=== PATIENT | female | born 1980 ===

== ENCOUNTER 2017-04-02 09:18 | Emergency (ER) | payer SELFPAY ==
[2017-04-02 09:19] VITALS: BMI 25.7
[2017-04-02 09:24] VITALS: RESP 18; O2SAT 100
[2017-04-02] MEDS ORDERED: Sodium Chloride 0.9% 1,000 ML IV STA (10:23)
--- NOTE | 2017-04-02 10:24 | ED PDOC ---
HPI: Female Pain Time Seen by Provider: 04/02/17 09:52 Chief Complaint (Nursing): Female Genitourinary Chief Complaint (Provider): UTI History Per: Patient Additional Complaint(s): 36 yo female, no PMH, presents to ED with complaints of 3 days of worsening burning on urination, abdominal cramping, nausea, vomiting and chills - pain radiates to right flank. Past Medical History Reviewed: Nursing Documentation, Vital Signs Vital Signs: Last Vital Signs Temp 98.6 F 04/02/17 09:24 Pulse 82 04/02/17 09:24 Resp 18 04/02/17 09:24 BP 131/73 04/02/17 09:24 Pulse Ox 100 04/02/17 09:24 - Medical History PMH: No Chronic Diseases Denies: Chronic Kidney Disease - Surgical History Surgical History: Appendectomy, Cholecystectomy - Family History Family History: States: Unknown Family Hx, Diabetes, Hypertension - Living Arrangements Living Arrangements: With Family - Home Medications Home Medications: Ambulatory Orders Medication Instructions Recorded Cholecalciferol (Vitamin D3) 1 tab PO DAILY 02/22/16 [D-2000 90 mg-2000 Iu] Vit#96/Ferrous Fum/FA 1 tab PO DAILY 02/22/16 [] Vitamin E [Vitamin E 400 Units Cap] 400 iu PO DAILY 02/22/16 Nitrofurantoin Macrocrystals 100 mg PO BID #6 cap 04/18/16 [Macrobid] Phenazopyridine HCl [Pyridium] 100 mg PO TID #9 tab 04/18/16 Naproxen [Naprosyn] 1 tab PO BID PRN #60 tab 09/17/16 Nitrofurantoin Macrocrystals 1 cap PO BID #14 cap 09/17/16 [Macrobid] Cyclobenzaprine [Cyclobenzaprine 10 mg PO Q8 #15 tab 11/02/16 HCl] Naproxen [Naprosyn] 500 mg PO BID #20 tablet 11/02/16 Cephalexin [cephalexin] 500 mg PO BID #20 cap 04/02/17 - Allergies Allergies/Adverse Reactions: Allergies Allergy/AdvReac Type Severity Reaction Status Date / Time No Known Allergies Allergy Verified 04/18/16 08:21 Review of Systems ROS Statement: Except As Marked, All Systems Reviewed And Found Negative Constitutional: Positive for: Chills Gastrointestinal: Positive for: Nausea, Vomiting, Abdominal Pain Genitourinary Female: Positive for: Dysuria Physical Exam - Reviewed Nursing Documentation Reviewed: Yes Vital Signs Reviewed: Yes - Physical Exam Appears: Positive for: Well, Non-toxic, No Acute Distress Head Exam: Positive for: ATRAUMATIC, NORMAL INSPECTION, NORMOCEPHALIC Skin: Positive for: Normal Color, Warm, DRY Eye Exam: Positive for: EOMI, Normal appearance, PERRL ENT: Positive for: Normal ENT Inspection Neck: Positive for: Normal, Painless ROM Cardiovascular/Chest: Positive for: Regular Rate, Rhythm Respiratory: Positive for: CNT, Normal Breath Sounds Gastrointestinal/Abdominal: Positive for: Normal Exam, Bowel Sounds, Soft Back: Positive for: Normal Inspection Extremity: Positive for: Normal ROM Neurologic/Psych: Positive for: Alert, Oriented - Laboratory Results Result Diagrams: 04/02/17 10:30 04/02/17 10:30 - ECG O2 Sat by Pulse Oximetry: 100 Medical Decision Making Medical Decision Making: IV access established and treatment initiated with IVF, Toradol and Rocephin IV after dip was (+) for nites and leuks. Labs resulted and reviewed with pt who reports feeling greatly improved on re- eval. Pt remains afebrile. WBC 10.2 Stable for discharge with outpt treatment at this time. Disposition - Clinical Impression Clinical Impression: Pyelonephritis - Patient ED Disposition Is Patient to be Admitted: No - Disposition Disposition: Routine/Home Disposition Time: 11:53 Condition: STABLE Prescriptions: Cephalexin [cephalexin] 500 mg PO BID #20 cap Instructions: Acute Pyelonephritis (ED) Print Language: LITHUANIAN
[2017-04-02] MEDS ORDERED: cefTRIAXone (Rocephin) 1 gm Inj ONE (10:27)
[2017-04-02 11:11] LABS: BASO % 0.3 % (0.0-2.0); EOS # 0.1 K/uL (0.0-0.7); EOS % 0.7 % (0.0-4.0); HEMOGLOBIN 13.5 g/dL (12.0-16.0); LYMPH # 2.1 K/uL (1.0-4.3); LYMPH % 21.1 % (20.0-40.0); MEAN CELL VOLUME 81.2 fl (81.0-99.0); MEAN CORPUSCULAR HEMOGLOBIN 27.1 pg (27.0-31.0); MEAN CORPUSCULAR HGB CONC 33.4 g/dL (33.0-37.0); MEAN PLATELET VOLUME 10.1 fl (7.2-11.7); MONO # 0.5 K/uL (0.0-0.8); MONO % 5.3 % (0.0-10.0); NEUT # 7.4 K/uL (1.8-7.0); NEUT % 72.6 % (50.0-75.0); RBC 4.98 Mil/uL (3.80-5.20); WHITE BLOOD COUNT 10.2 K/uL (4.8-10.8)
[2017-04-02 11:12] LABS: SQUAMOUS EPITHIAL 6 /hpf (0-5); URINE BACTERIA RARE (<OCC); URINE BILIRUBIN NEGATIVE (NEGATIVE); URINE BLOOD NEGATIVE (NEGATIVE); URINE CLARITY CLOUDY (Clear); URINE COLOR YELLOW (YELLOW); URINE GLUCOSE (UA) NEG (Normal); URINE LEUKOCYTE ESTERASE LARGE Leu/uL (Negative); URINE NITRATE NEGATIVE (NEGATIVE); URINE PROTEIN NEGATIVE (NEGATIVE); URINE UROBILINOGEN 0.2-1.0 mg/dL (0.2-1.0)
[2017-04-02 11:15] LABS: ALB/GLOB RATIO 1.3 (1.0-2.1); ALBUMIN 4.4 g/dL (3.5-5.0); ALT/SGPT 61 U/L (9-52); AST/SGOT 31 U/L (14-36); BLOOD UREA NITROGEN 13 mg/dl (7-17); CALCIUM 9.5 mg/dL (8.4-10.2); GFR AFRICAN-AMERICAN > 60; GFR NON-AFRICAN AMERICAN > 60
[2017-04-02 12:07] VITALS: BP 115/60; PULSE 72; TEMP 98.2
== END 2017-04-02 12:08 | disposition home or self-care (01) ==
LOC: H.ER 09:18
DX: N12 Tubulo-interstitial nephritis, not specified as acute or chronic (principal)

== ENCOUNTER 2017-10-27 13:37 | Emergency (ER) | payer SELFPAY ==
[2017-10-27 13:38] VITALS: BMI 25.7
[2017-10-27 13:57] VITALS: BP 120/76; PULSE 79; RESP 18; TEMP 98.9; O2SAT 99
[2017-10-27] MEDS ORDERED: Amoxicillin-Clav 875-125 mg Tab PO STA (14:45)
[2017-10-27] MEDS ORDERED: Amoxicillin-Clav 875-125 mg Tab PO ONE (14:50)
--- NOTE | 2017-10-27 14:50 | ED PDOC ---
HPI: CCC, URI, Sore Throat Time Seen by Provider: 10/27/17 13:45 Chief Complaint (Nursing): Flu-like Symptoms Chief Complaint (Provider): Flu like symptoms History Per: Patient Additional Complaint(s): 37 yo female, denies any PMH, presents to ED c/o sore throat, fever, n/v/d x 4 days. No body aches or weakness. Pt tolerating PO, however with pain Past Medical History Reviewed: Nursing Documentation, Vital Signs Vital Signs: Last Vital Signs Temp 98.9 F 10/27/17 13:55 Pulse 79 10/27/17 13:55 Resp 18 10/27/17 13:55 BP 120/76 10/27/17 13:55 Pulse Ox 99 10/27/17 14:50 - Medical History PMH: No Chronic Diseases Denies: Chronic Kidney Disease - Surgical History Surgical History: Appendectomy, Cholecystectomy - Family History Family History: States: Unknown Family Hx, Diabetes, Hypertension - Living Arrangements Living Arrangements: With Family - Social History Current smoker - smoking cessation education provided: No Alcohol: Social Drugs: Denies - Home Medications Home Medications: Ambulatory Orders Medication Instructions Recorded Cholecalciferol (Vitamin D3) 1 tab PO DAILY 02/22/16 [D-2000 90 mg-2000 Iu] Vit#96/Ferrous Fum/FA 1 tab PO DAILY 02/22/16 [] Vitamin E [Vitamin E 400 Units Cap] 400 iu PO DAILY 02/22/16 Nitrofurantoin Macrocrystals 100 mg PO BID #6 cap 04/18/16 [Macrobid] Phenazopyridine HCl [Pyridium] 100 mg PO TID #9 tab 04/18/16 Naproxen [Naprosyn] 1 tab PO BID PRN #60 tab 09/17/16 Nitrofurantoin Macrocrystals 1 cap PO BID #14 cap 09/17/16 [Macrobid] Cyclobenzaprine [Cyclobenzaprine 10 mg PO Q8 #15 tab 11/02/16 HCl] Naproxen [Naprosyn] 500 mg PO BID #20 tablet 11/02/16 Cephalexin [cephalexin] 500 mg PO BID #20 cap 04/02/17 Amoxicillin/Clavulanate [Augmentin 1 tab PO BID #14 tab 10/27/17 875 MG-125 MG] Ibuprofen [Motrin] 600 mg PO Q6 #20 tab 10/27/17 - Allergies Allergies/Adverse Reactions: Allergies Allergy/AdvReac Type Severity Reaction Status Date / Time No Known Allergies Allergy Verified 04/18/16 08:21 Review of Systems ROS Statement: Except As Marked, All Systems Reviewed And Found Negative ENT: Positive for: Throat Pain Physical Exam - Reviewed Nursing Documentation Reviewed: Yes Vital Signs Reviewed: Yes - Physical Exam Appears: Positive for: Well, Non-toxic, No Acute Distress Head Exam: Positive for: ATRAUMATIC, NORMAL INSPECTION, NORMOCEPHALIC Skin: Positive for: Normal Color, Warm, DRY Eye Exam: Positive for: EOMI, Normal appearance, PERRL ENT: Positive for: Pharyngeal Erythema, Tonsillar Exudate, Tonsillar Swelling, Other (no uvula deviation or palatal asymmetry) Neck: Positive for: Normal, Painless ROM Cardiovascular/Chest: Positive for: Regular Rate, Rhythm Respiratory: Positive for: CNT, Normal Breath Sounds Gastrointestinal/Abdominal: Positive for: Normal Exam, Bowel Sounds, Soft Back: Positive for: Normal Inspection Extremity: Positive for: Normal ROM Neurologic/Psych: Positive for: Alert, Oriented - ECG O2 Sat by Pulse Oximetry: 99 Medical Decision Making Medical Decision Making: due to clinical exam, Pt medicated with Motrina nd Augmentin fro strep Disposition - Clinical Impression Clinical Impression: Strep throat - Patient ED Disposition Is Patient to be Admitted: No - Disposition Disposition: Routine/Home Disposition Time: 15:00 Condition: STABLE Prescriptions: Amoxicillin/Clavulanate [Augmentin 875 MG-125 MG] 1 tab PO BID #14 tab Ibuprofen [Motrin] 600 mg PO Q6 #20 tab Instructions: Strep Throat (ED) Forms: [employer] (Belgian), [facility] School/Work Excuse Print Language: AZERI
== END 2017-10-27 15:30 | disposition home or self-care (01) ==
LOC: H.ER 13:37
DX: J02.0 Streptococcal pharyngitis (principal)